=== PATIENT | male | born 1955 | race Caucasian/White ===

== ENCOUNTER 2025-05-21 05:47 | Observation (INO) | payer MEDICARE ==
[2025-05-21] MEDS ORDERED: [UNRECOGNIZED DRUG - OTHER] IV ONE (05:48)
[2025-05-21] MEDS ORDERED: TRANEXAMIC IV ONE (05:48)
[2025-05-21] MEDS ORDERED: CEFAZOLIN SODIUM ONE (05:59)
[2025-05-21] MEDS: NEURONTIN PO ONE (06:00)
[2025-05-21] MEDS: Decadron 4 MG PO ONE (06:00)
[2025-05-21] MEDS: TYLENOL EXTRA STRENGTH 500 MG PO ONE (06:00)
[2025-05-21] MEDS: celeBREX 100 MG PO ONE (06:01)
[2025-05-21] MEDS: Lactated Ringers 1,000 ML IV SCH (06:01)
[2025-05-21] MEDS ORDERED: Lactated Ringers 1,000 ML IV ONE (07:38)
[2025-05-21] MEDS ORDERED: VANCOCIN INJECTION IV ONE (07:38)
[2025-05-21] MEDS ORDERED: Versed 2 MG/2 ML Injection ONE (07:45)
[2025-05-21] MEDS ORDERED: SUBLIMAZE 100 MCG/2 ML ONE (07:46)
[2025-05-21] MEDS ORDERED: Astramorph-Pf 5 MG/10 ML ONE (07:46)
[2025-05-21] MEDS ORDERED: Xylocaine-Mpf 2% 5 Ml Vial ONE (07:47)
[2025-05-21] MEDS ORDERED: Zofran 4 MG/2 ML VIAL ONE (07:47)
[2025-05-21] MEDS ORDERED: ROCURONIUM BROMIDE IV ONE (07:47)
[2025-05-21] MEDS ORDERED: propofoL IV ONE (07:47)
[2025-05-21] MEDS ORDERED: EXPAREL 133 MG/10 ML VIAL IJ ONE (07:52)
[2025-05-21] MEDS ORDERED: Marcaine Mpf 0.5% Vial 30 Ml ONE (07:52)
[2025-05-21] MEDS: TRANEXAMIC 1,000 MG/100ML-NACL 1,000 MG/100 ML PIGGYBACK IV ONE (08:02)
[2025-05-21] MEDS ORDERED: Ephedrine Sulfate 50 MG/ML ONE (08:28)
[2025-05-21] MEDS ORDERED: BRIDION 200MG/2ML IV ONE (08:47)
[2025-05-21] MEDS ORDERED: Narcan 0.4 MG/ML IV PRN (09:22)
[2025-05-21] MEDS ORDERED: Nubain 10 MG/ML IV PRN (09:22)
[2025-05-21] MEDS ORDERED: Zofran 4 MG/2 ML VIAL IV PRN ×2 (09:22→13:10)
[2025-05-21] MEDS ORDERED: PERCOCET TABLET 5/325MG PO PRN (09:22)
[2025-05-21] MEDS ORDERED: Sodium Chloride 0.9% 10 ML FLUSH Syringe IJ PRN (09:22)
[2025-05-21] MEDS ORDERED: CLARITIN 10 MG PO PRN (09:22)
[2025-05-21] MEDS ORDERED: MORPHINE SULFATE 2 MG INJ IV PRN (09:22)
[2025-05-21] MEDS ORDERED: BENADRYL 50 MG/ML IV PRN (09:22)
[2025-05-21] MEDS ORDERED: DEMEROL 50 MG IV PRN (09:22)
[2025-05-21] MEDS ORDERED: HOLD NARCOTIC ANALGESICS AND SEDATIVES X24 HR MC SCH (10:00)
[2025-05-21] MEDS ORDERED: ALBUTEROL/Proair Hfa MDI IH ONE (10:19)
--- NOTE | 2025-05-21 11:39 | XRAY ---
Indication: Postop exam. Comparison: December 19, 2024 AP/cross-table lateral right knee now demonstrates total knee replacement, postoperative soft tissue swelling/emphysema, and anterior cutaneous poppy. Stable scattered vascular calcifications. No other abnormalities.
[2025-05-21] MEDS ORDERED: NORCO 10-325 MG PO PRN (13:09)
[2025-05-21] MEDS ORDERED: Docusate Sodium 100 MG PO PRN (13:10)
[2025-05-21] MEDS ORDERED: MORPHINE SULFATE 4 MG INJ IV PRN (13:11)
--- NOTE | 2025-05-21 13:48 | PCM.HP ---
History of Present Illness - Chief Complaint Chief Complaint: S/P RIGHT TOTAL KNEE,BIGEMINY,ST DEPRESSION Date: 05/21/25 History of Present Illness: is a 69 year old male with a pmhx of CAD, HTN, HLD, and smoker ho presented for admission following a right total knee arthroplasty after being noted postoperatively to have new electrocardiographic changes. Nursing and surgical staff observed runs of ventricular bigeminy and ST-segment depression, prompting evaluation. The patient himself remains entirely asymptomatic, denying chest pain, shortness of breath, palpitations, dizziness, or presyncope. On arrival his vital signs were stable, and initial troponin was negative. A 12- lead EKG demonstrated sinus rhythm with frequent premature ventricular complexes in a bigeminy pattern, nonspecific ST-segment depression in the inferior and lateral leads (II, III, aVF, V5V6), and borderline QTc prolongation measured at 457 ms. Telemetry confirmed sinus rhythm with intermittent ventricular bigeminy without sustained arrhythmia. Chest X-ray showed no acute cardiopulmonary process. The patient is admitted for cardiac monitoring and evaluation in the context of his significant CAD history and abnormal postoperative EKG findings. Cardiology has been consulted for further recommendations regarding ischemic evaluation and echocardiography. Orthopedic postoperative management will continue with multimodal pain control, physical therapy initiation, and m onitoring for DVT or wound complications while maintaining prophylaxis per protocol. Plan of care time spent 35 minutes. - Review of Systems All Other Systems: Reviewed and Negative Medications & Allergies Home Medications: Home Medication List Clopidogrel Bisulfate [PLAVIX 75 MG Tablet] 75 mg PO DAILY 12/21/14 [History Confirmed 05/18/25] Ramipril 5 mg [Altace 5 MG] 5 mg PO BID 12/21/14 [History Confirmed 05/18/25] hydroCHLOROthiazide [Hydrochlorothiazide] 12.5 mg PO DAILY 12/21/14 [History Confirmed 05/18/25] Aspirin 81 mg PO DAILY 12/24/14 [History Confirmed 05/18/25] Rosuvastatin Calcium 5 mg PO DAILY 10/19/24 [History Confirmed 05/18/25] Allergies/Adverse Reactions: Allergies Allergy/AdvReac Type Severity Reaction Status Date / Time atorvastatin [From Lipitor] Allergy cramping Verified 05/18/25 13:12 bee pollen Allergy Swelling Verified 05/18/25 13:12 - Past Medical History Past Medical History: Yes Neurological History: No Pertinent History ENT History: No Pertinent History Cardiac History: Coronary Artery Disease, High Cholesterol, Hypertension Respiratory History: No Pertinent History Endocrine Medical History: No Pertinent History Musculoskelatal History: No Pertinent History GI Medical History: Gallbladder Disease History: No Pertinent History Pyscho-Social History: No Pertinent History Male Reproductive Disorders: No Pertinent History - Past Surgical History Past Surgical History: Yes Neuro Surgical History: No Pertinent History Cardiac History: Cardiac Catheterization, Cardiac Stent Respiratory Surgery: No Pertinent History GI Surgical History: Cholecystectomy, Hernia Repair Genitourinary Surgical Hx: No Pertinent History Musculskeletal Surgical Hx: Orthopedic Surgery Male Surgical History: No Pertinent History Other Surgical History: left foot surgery/tendon or ligament, right knee twice,left groin "unclogged", back surgery, heart stents, Significant Family History: diabetes - Social History Smoking Status: Current every day smoker How long have you smoked: 60 Exposure to second hand smoke: Yes Alcohol: None Drug Use: none - Social Determinants of Health Will the patient participate in the screening: Yes Do you worry about a steady place to live?: No Do you have any problems with any of the following?: No known problems In the past 12 months,have you had to go without utilities?: No Have you or anyone in your house had to go without enough: No Transportation Issues: No Has anyone in your support network made you feel unsafe?: No Does the patient want assistance with any of the above?: No - Physical Exam Vital Signs: Vital Signs - 24 hr Temp Pulse Resp BP Pulse Ox 05/21/25 12:14 96 05/21/25 11:29 97.7 F 58 L 16 123/56 90 L 05/21/25 11:25 97.7 F 58 L 16 113/56 90 L 05/21/25 06:21 97.3 F 84 18 123/78 97 05/21/25 06:12 97.3 F 84 18 123/78 97 General Appearance: no apparent distress Neurologic Exam: alert, oriented x 3, cooperative Eye Exam: PERRL/EOMI Ears, Nose, Throat Exam: normal ENT inspection Neck Exam: normal inspection Respiratory Exam: normal breath sounds, lungs clear Cardiovascular Exam: regular rate/rhythm, normal heart sounds Gastrointestinal/Abdomen Exam: soft, normal bowel sounds Rectal Exam: deferred Back Exam: normal inspection Extremity Exam: normal inspection Wound Assessment: Skin/Wound Assessment Wound/Incision Assessment Start: 05/21/25 11:43 Text: Status: Active Freq: Q6H Protocol: Document 05/21/25 11:43 AR (Rec: 05/21/25 12:16 AR [id number]) Wound/Incision Assessment Right Knee Wound Assessment Admission Wound Type Incision Wound Stage Non Pressure Wound Dressing Status Dry & Intact Drainage Amount None Comment sutures and poppy to right knee and covered with aquacel drainage, CDI Wound Photo Photo Taken No Results - Labs Lab/Micro Results: Lab Results-Last 24 Hours 05/21/25 Range/Units 11:00 Troponin I < 0.012 (0.000-0.033) ng/mL - Radiology Impressions Radiology Exams & Impressions: Radiology Procedures Category Date Time Status ECHO W/2D AND DOPPLER [US] Stat Exams 05/21/25 13:39 Ordered KNEE (1 OR 2 VIEW) Stat Exams 05/21/25 10:39 Completed - Other Procedures and Tests Respiratory Therapy 05/21/25 11:11 Oxygen Oxymizer LPM 3 lpm 05/21/25 12:14 Incentive Spirometry Q1HWA Assessment/Plan (1) Abnormal EKG Current Visit: Yes Status: Acute Assessment & Plan: -ST depression, frequent PVCs with ventricular bigeminy, borderline prolonged QTc -Admit for cardiac monitoring and workup. -Continue continuous telemetry. -Initial troponin WNL -Trend serial troponins x3 and repeat EKGs. -Maintain electrolytes: K >4.0, Mg >2.0 (replete as necessary). -Avoid QT-prolonging medications. -Cardiology consultation pending for further management (consider echo, ischemic evaluation). -Monitor for recurrence or progression of arrhythmia. Code(s): R94.31 - ABNORMAL ELECTROCARDIOGRAM [ECG] [EKG] (2) Status post right knee replacement Current Visit: Yes Status: Acute Assessment & Plan: -Continue orthopedic postoperative protocol. -pain management. -Physical therapy initiation per ortho. -Monitor incision site for infection, DVT. -Continue DVT prophylaxis (to be balanced with cardiac recommendations). Code(s): Z96.651 - PRESENCE OF RIGHT ARTIFICIAL KNEE JOINT (3) CAD (coronary artery disease) Current Visit: Yes Status: Acute Assessment & Plan: -Continue aspirin, statin, beta-janeth -Monitor for ischemic changes. -Modify risk factors (cardiac rehab referral once stable) Code(s): I25.10 - ATHSCL HEART DISEASE OF [place] CORONARY ARTERY W/O ANG PCTRS (4) HTN (hypertension) Current Visit: Yes Status: Acute Assessment & Plan: -Resume home antihypertensives as tolerated. -Monitor BP closely perioperatively. Code(s): I10 - ESSENTIAL (PRIMARY) HYPERTENSION (5) HLD (hyperlipidemia) Current Visit: Yes Status: Acute Assessment & Plan: -Continue statin therapy Code(s): E78.5 - HYPERLIPIDEMIA, UNSPECIFIED (6) Smoker Current Visit: Yes Status: Acute Assessment & Plan: -Counseling on cessation and offered nicotine replacement. VTE: ASA per ortho Dispo: 1-2 days pending cardiac evaluation Code status: Full Code. Code(s): F17.200 - NICOTINE DEPENDENCE, UNSPECIFIED, UNCOMPLICATED
[2025-05-21] MEDS ORDERED: DUONEB 0.5-3 MG/3 ml Neb IH PRN (13:51)
[2025-05-21 14:02] LABS: BASOPHIL % 0.2 % (0.2-1.2); Basophil (Absolute #) 0.02 x10^3/uL (0.01-0.08); Eosinophil (Absolute #) 0.01 x10^3/uL (0.04-0.54); Hematocrit 47.8 % (40.1-51.0); Hemoglobin 15.2 g/dL (13.7-17.5); IMMATURE GRAN # 0.08 x10^3u/L (0.001-0.031); IMMATURE GRAN % 0.6 % (0.001-0.429); Lymphocyte (Absolute #) 1.10 x10^3/uL (1.32-3.57); Mean Corpuscular Hemoglobin 30.2 pg (25.7-32.2); Mean Corpuscular Hgb Concent. 31.8 g/dL (32.3-36.5); Monocyte (Absolute #) 0.16 x10^3/uL (0.30-0.82); NUCLEATED RBC # 0.00 x10^3u/L (0.00-0.012); NUCLEATED RBC % 0.0 % (0.00-0.2); Platelet Count 161 x10^3/uL (163-337); Red Blood Count 5.03 x10^6/uL (4.63-6.08); White Blood Count 12.8 x10^3/uL (4.23-9.07)
[2025-05-21 14:17] LABS: Calcium 8.5 mg/dL (8.4-10.2); Carbon Dioxide 27.0 mmol/L (22-30); Creatinine 1 0.72 mg/dL (0.66-1.25); EST GLOMERULAR FILTRATION RATE 97.7 ML/MIN; Glucose 185.0 mg/dL (74-106); Potassium 3.9 mmol/L (3.5-5.1); SGOT/AST 20.0 U/L (17-59); SGPT/ALT 16.0 U/L (0-50); Total Protein 6.1 g/dL (6.3-8.2)
--- NOTE | 2025-05-21 15:23 | XRAY ---
Indication: Cardiac workup. Comparison: April 27, 2025 Portable chest remains clear again with incidental right lung calcified granuloma. Heart not enlarged. Bony thorax intact again with osteopenia and mild degenerative changes. No new/acute findings.
[2025-05-21] MEDS: NICODERM CQ 14 MG TOP SCH (16:19)
[2025-05-21] MEDS: Zestril 20 MG PO SCH (21:26)
[2025-05-21] MEDS ORDERED: RAMIPRIL 5 MG PO SCH (22:00)
--- NOTE | 2025-05-21 22:52 | PCM.CONS ---
History of Present Illness - Date of Consult Date of Encounter: 05/21/25 Consulting [employer] Specialist: ALFONSO BOLDEN MD Requesting Provider: Attending Provider: KAMERON YOUNG MD Primary Care Provider: PCP: DWAIN RODRIGUEZ - Consult Narrative Reason for Consult: abnormal ecg HPI: Patient is a 69M with a history of CAD and two stents 25 years ago, HLD, HTN, chronic tobacco use presenting to the hospital for elective knee arthroplasty. Postoperatively he developed ecg changes including diffuse st depressions and multiple pvcs. He felt well and these changes resolved on their own. No chest pain or shortness of breath. No dizziness or lightheadedness. No palpitations. Troponins were checked and negative x 3. cc:: The requesting physician will be sent a copy of the consult. Review of Systems - Review of Systems All systems: as per HPI - Past Medical History Past Medical History: Yes Neurological History: No Pertinent History ENT History: No Pertinent History Cardiac History: Coronary Artery Disease, High Cholesterol, Hypertension Respiratory History: No Pertinent History Endocrine Medical History: No Pertinent History Musculoskelatal History: No Pertinent History GI Medical History: Gallbladder Disease History: No Pertinent History Pyscho-Social History: No Pertinent History Male Reproductive Disorders: No Pertinent History - Past Surgical History Past Surgical History: Yes Neuro Surgical History: No Pertinent History Cardiac History: Cardiac Catheterization, Cardiac Stent Respiratory Surgery: No Pertinent History GI Surgical History: Cholecystectomy, Hernia Repair Genitourinary Surgical Hx: No Pertinent History Musculskeletal Surgical Hx: Orthopedic Surgery Male Surgical History: No Pertinent History Other Surgical History: left foot surgery/tendon or ligament, right knee twice,left groin "unclogged", back surgery, heart stents, Significant Family History: diabetes - Social History Smoking Status: Current every day smoker How long have you smoked: 60 Exposure to second hand smoke: Yes Alcohol: None Drug Use: none - Social Determinants of Health Will the patient participate in the screening: Yes Do you worry about a steady place to live?: No Do you have any problems with any of the following?: No known problems In the past 12 months,have you had to go without utilities?: No Have you or anyone in your house had to go without enough: No Transportation Issues: No Has anyone in your support network made you feel unsafe?: No Does the patient want assistance with any of the above?: No Medications & Allergies Home Medications: Home Medication List Clopidogrel Bisulfate [PLAVIX 75 MG Tablet] 75 mg PO DAILY 12/21/14 [History Confirmed 05/18/25] Ramipril 5 mg [Altace 5 MG] 5 mg PO BID 12/21/14 [History Confirmed 05/18/25] hydroCHLOROthiazide [Hydrochlorothiazide] 12.5 mg PO DAILY 12/21/14 [History Confirmed 05/18/25] Aspirin 81 mg PO DAILY 12/24/14 [History Confirmed 05/18/25] Rosuvastatin Calcium 5 mg PO DAILY 10/19/24 [History Confirmed 05/18/25] Allergies/Adverse Reactions: Allergies Allergy/AdvReac Type Severity Reaction Status Date / Time atorvastatin [From Lipitor] Allergy cramping Verified 05/18/25 13:12 bee pollen Allergy Swelling Verified 05/18/25 13:12 Exam - Vitals Vital Signs: Vital Signs - 24 hr Temp Pulse Resp BP Pulse Ox 05/21/25 21:23 93 L 05/21/25 20:00 98.0 F 74 15 113/55 97 05/21/25 16:00 98.2 F 93 H 18 125/60 94 L 05/21/25 12:14 96 05/21/25 11:29 97.7 F 58 L 16 123/56 90 L 05/21/25 11:25 97.7 F 58 L 16 113/56 90 L 05/21/25 06:21 97.3 F 84 18 123/78 97 05/21/25 06:12 97.3 F 84 18 123/78 97 General:: alert and oriented x 4, no acute distress HEENT: PERRLA, EOMI Cardiovascular Exam: regular rate/rhythm, normal heart sounds Respiratory Exam: normal breath sounds SpO2: 93 Results Vital Signs: Vital Signs - 24 hr Temp Pulse Resp BP Pulse Ox 05/21/25 21:23 93 L 05/21/25 20:00 98.0 F 74 15 113/55 97 05/21/25 16:00 98.2 F 93 H 18 125/60 94 L 05/21/25 12:14 96 05/21/25 11:29 97.7 F 58 L 16 123/56 90 L 05/21/25 11:25 97.7 F 58 L 16 113/56 90 L 05/21/25 06:21 97.3 F 84 18 123/78 97 05/21/25 06:12 97.3 F 84 18 123/78 97 Pain Assessment - Last Documented Pain Intensity [Right] 2 Pain Scale Used 0-10 Pain Scale Intake and Output: Intake & Output 05/19/25 05/20/25 05/21/25 05/22/25 11:59 11:59 11:59 11:59 Intake Total 600 Balance 600 Weight 93.5 kg LAB: I have reviewed the Labs in [facility]. Radiology Exams: Radiology Procedures Category Date Time Status CHEST 1 VIEW (PORTABLE) Stat Exams 05/21/25 13:51 Completed ECHO W/2D AND DOPPLER [US] Stat Exams 05/21/25 13:39 Taken KNEE (1 OR 2 VIEW) Stat Exams 05/21/25 10:39 Completed - ECHO Echo: image reviewed by me (normal LVEF, no wall motion abnormalities, RV enlargement) Multi-Disciplinary Progress Notes: Multi-Disciplinary Progress Notes 05/21/25 16:22 Physical Therapy Note by Bill(L#[id number])Windy CARDIOLOGY CONSULT STILL PENDING. REVIEWED PROPER, SAFE STEP NEGOTIATION AND PROVIDED PT. W/ HANDOUT. PERFORMED ANKLE PUMPS AND QUAD SETS IN BED. PT. STILL HAS SOME NUMBNESS R LE. WILL HOLD ON MOBILITY ASSESSMENT UNTIL AFTER CARDIAC CONSULT. PT. ON 1-2 L O2 D/T LOW SATS AND IV PRESENT. WILL COMPLETE P.T. EVAL IN IN A.M. Initialized on 05/21/25 16:22 - END OF NOTE 05/21/25 14:10 Physical Therapy Note by Eunice#[id number])Windy WILL HOLD P.T. EVAL UNTIL AFTER CARDIOLOGY CONSULT. Initialized on 05/21/25 14:10 - END OF NOTE Assessment & Plan (1) Abnormal EKG Current Visit: Yes Status: Acute Assessment & Plan: No evidence of acute coronary syndrome. Patient had negative troponin x 2 - Check one more trop - monitor on telemetry - If negative recommend outpatient stress test and/or angiogram. 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 - smoking cessation encouraged given his daily use - continue plavix, aspirin Code(s): R94.31 - ABNORMAL ELECTROCARDIOGRAM [ECG] [EKG] (2) CAD (coronary artery disease) Current Visit: Yes Status: Acute Assessment & Plan: 2 stents in the past - continue statin - continue aspirin, plavix - outpatient stres Code(s): I25.10 - ATHSCL HEART DISEASE OF [place] CORONARY ARTERY W/O ANG PCTRS (3) HLD (hyperlipidemia) Current Visit: Yes Status: Acute Assessment & Plan: continue statin Code(s): E78.5 - HYPERLIPIDEMIA, UNSPECIFIED (4) HTN (hypertension) Current Visit: Yes Status: Acute Code(s): I10 - ESSENTIAL (PRIMARY) HYPERTENSION - Encounter Encounter: "The entirety of this encounter was performed via Telemedicine using audio and visual "
[2025-05-22 05:33] LABS: BASOPHIL % 0.3 % (0.2-1.2); Basophil (Absolute #) 0.04 x10^3/uL (0.01-0.08); Eosinophil (Absolute #) 0.07 x10^3/uL (0.04-0.54); Hematocrit 43.9 % (40.1-51.0); Hemoglobin 13.8 g/dL (13.7-17.5); IMMATURE GRAN # 0.11 x10^3u/L (0.001-0.031); IMMATURE GRAN % 0.8 % (0.001-0.429); Lymphocyte (Absolute #) 2.87 x10^3/uL (1.32-3.57); Mean Corpuscular Hemoglobin 30.0 pg (25.7-32.2); Mean Corpuscular Hgb Concent. 31.4 g/dL (32.3-36.5); Monocyte (Absolute #) 1.03 x10^3/uL (0.30-0.82); NUCLEATED RBC # 0.00 x10^3u/L (0.00-0.012); NUCLEATED RBC % 0.0 % (0.00-0.2); Platelet Count 158 x10^3/uL (163-337); Red Blood Count 4.60 x10^6/uL (4.63-6.08); White Blood Count 14.6 x10^3/uL (4.23-9.07)
[2025-05-22 05:55] LABS: Calcium 8.9 mg/dL (8.4-10.2); Carbon Dioxide 27.0 mmol/L (22-30); Creatinine 1 0.69 mg/dL (0.66-1.25); EST GLOMERULAR FILTRATION RATE 98.9 ML/MIN; Glucose 142.0 mg/dL (74-106); Potassium 3.6 mmol/L (3.5-5.1); SGOT/AST 21.0 U/L (17-59); SGPT/ALT 15.0 U/L (0-50); Total Protein 6.3 g/dL (6.3-8.2)
[2025-05-22 07:07] LABS: Amphetamine,Urine NEGATIVE (NEGATIVE); Barbiturate,Urine NEGATIVE (NEGATIVE); Benzodiazepine,Urine POSITIVE (NEGATIVE); Cocaine,Urine NEGATIVE (NEGATIVE); Methadone,Urine NEGATIVE (NEGATIVE); Opiate,Urine NEGATIVE (NEGATIVE); PCP,Urine NEGATIVE (NEGATIVE); THC,Urine NEGATIVE (NEGATIVE)
[2025-05-22 07:26] LABS: Glucose, Urine 100 mg/dL (Negative); Protein,Urine Dip 30 (Negative)
[2025-05-22] MEDS ORDERED: MORPHINE SULFATE 4 MG INJ IV PRN (09:30)
[2025-05-22] MEDS ORDERED: NON-FORMULARY ITEM (Hydrochlorothiazide [Hydrochlorothiazide] 12.5 MG Capsule) PO SCH (10:00)
[2025-05-22] MEDS ORDERED: NON-FORMULARY ITEM (Rosuvastatin Calcium [Rosuvastatin Calcium] 5 MG Tablet) PO SCH (10:00)
--- NOTE | 2025-05-22 10:07 | PCM.DS ---
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 He remained asymptomatic throughout admission, with negative troponin, stable vitals, and cardiology consultation recommending continued monitoring without medication changes. Telemetry showed sinus rhythm with intermittent ventricular bigeminy, and no sustained arrhythmias were noted. Postoperatively, he has had good pain control without the need for analgesics. He experienced difficulty urinating overnight requiring straight catheterization with 650 mL output, followed by spontaneous voiding with hematuria likely related to catheter trauma. The patient declined discharge with a Kauffman catheter and was advised to notify staff of voiding prior to discharge. Laboratory studies revealed hypokalemia and hypomagnesemia, which were corrected, with goals to maintain potassium above 4.0 and magnesium above 2.0. He was also started on an albuterol inhaler for intermittent wheezing given his ctj-[id number]-plp-day smoking history and will be discharged with this medication. Orthopedics was consulted for discharge planning, and physical therapy is ongoing. At the time of discharge, he denies any acute concerns, is hemodynamically stable, and is medically cleared to return home with outpatient follow-up as directed by cardiology and orthopedics. - Vitals & Intake/Output Vital Signs: Vital Signs Temperature 98.1 F 05/22/25 07:47 Pulse Rate 94 H 05/22/25 07:47 Respiratory Rate 16 05/22/25 07:47 Blood Pressure 119/65 05/22/25 07:47 O2 Sat by Pulse Oximetry 94 L 05/22/25 07:47 Intake & Output: Intake & Output 05/19/25 05/20/25 05/21/25 09/09/25 11:59 11:59 11:59 11:59 Intake Total 2539 Output Total 650 Balance 1889 Weight 93.5 kg 93.5 kg - Lab Result Diagrams: 05/22/25 05:30 05/22/25 05:30 Lab Results-Last 24 Hrs: Lab Results-Last 24 Hours 05/21/25 05/21/25 05/21/25 Range/Units 11:00 13:55 13:55 WBC 12.8 H (4.23-9.07) x10^3/uL RBC 5.03 (4.63-6.08) x10^6/uL Hgb 15.2 (13.7-17.5) g/dL Hct 47.8 (40.1-51.0) % MCV 95.0 H (79.0-92.2) fL MCH 30.2 (25.7-32.2) pg MCHC 31.8 L (32.3-36.5) g/dL RDW 14.2 (11.6-14.4) % Plt Count 161 L (163-337) x10^3/uL MPV 10.7 (9.4-12.4) fL Gran % 89.3 H (34.0-67.9) % Immature Gran % (Auto) 0.6 H (0.001-0.429) % Nucleat RBC Rel Count 0.0 (0.00-0.2) % Eos # (Auto) 0.01 L (0.04-0.54) x10^3/uL Immature Gran # (Auto) 0.08 H (0.001-0.031) x10^3u/L Absolute Lymphs (auto) 1.10 L (1.32-3.57) x10^3/uL Absolute Monos (auto) 0.16 L (0.30-0.82) x10^3/uL Absolute Nucleated RBC 0.00 (0.00-0.012) x10^3u/L Lymphocytes % 8.6 L (21.8-53.1) % Monocytes % 1.2 L (5.3-12.2) % Eosinophils % 0.1 L (0.8-7.0) % Basophils % 0.2 (0.2-1.2) % Absolute Granulocytes 11.47 H (1.78-5.38) x10^3/uL Basophils # 0.02 (0.01-0.08) x10^3/uL D-Dimer (0.0-0.50) mg/L Sodium (135-145) mmol/L Potassium (3.5-5.1) mmol/L Chloride (98-107) mmol/L Carbon Dioxide (22-30) mmol/L Anion Gap (5-15) MEQ/L BUN (9-20) mg/dL Creatinine (0.66-1.25) mg/dL Estimated GFR ML/MIN Glucose (74-106) mg/dL Calcium (8.4-10.2) mg/dL Magnesium (1.6-2.3) mg/dL Total Bilirubin (0.2-1.3) mg/dL AST (17-59) U/L ALT (0-50) U/L Alkaline Phosphatase (38-126) U/L Troponin I < 0.012 < 0.012 (0.000-0.033) ng/mL Serum Total Protein (6.3-8.2) g/dL Albumin (3.5-5.0) g/dL Urine Color (Yellow) Urine Appearance (Clear) Urine pH (4.6-8.0) Ur Specific [place] (1.005-1.030) Urine Protein (Negative) Urine Glucose (UA) (Negative) mg/dL Urine Ketones (Negative) Urine Blood (Negative) Urine Nitrite (Negative) Urine Bilirubin (Negative) Urine Urobilinogen (0.2) mg/dL Ur Leukocyte Esterase (Negative) U Hyaline Cast (Auto) (0-2) /LPF Urine Microscopic RBC (0-5) /HPF Urine Microscopic WBC (0-5) /HPF Ur Epithelial Cells (None Seen) /HPF Urine Bacteria (None Seen) /HPF Urine Culture Reflexed (NO) Urine Opiates Level (NEGATIVE) Ur Methadone (NEGATIVE) Urine Barbiturates (NEGATIVE) Ur Phencyclidine (PCP) (NEGATIVE) Urine Amphetamine (NEGATIVE) U Benzodiazepine Level (NEGATIVE) Urine Cocaine (NEGATIVE) Urine Marijuana (THC) (NEGATIVE) 05/21/25 05/21/25 05/21/25 Range/Units 13:55 13:55 17:10 WBC (4.23-9.07) x10^3/uL RBC (4.63-6.08) x10^6/uL Hgb (13.7-17.5) g/dL Hct (40.1-51.0) % MCV (79.0-92.2) fL MCH (25.7-32.2) pg MCHC (32.3-36.5) g/dL RDW (11.6-14.4) % Plt Count (163-337) x10^3/uL MPV (9.4-12.4) fL Gran % (34.0-67.9) % Immature Gran % (Auto) (0.001-0.429) % Nucleat RBC Rel Count (0.00-0.2) % Eos # (Auto) (0.04-0.54) x10^3/uL Immature Gran # (Auto) (0.001-0.031) x10^3u/L Absolute Lymphs (auto) (1.32-3.57) x10^3/uL Absolute Monos (auto) (0.30-0.82) x10^3/uL Absolute Nucleated RBC (0.00-0.012) x10^3u/L Lymphocytes % (21.8-53.1) % Monocytes % (5.3-12.2) % Eosinophils % (0.8-7.0) % Basophils % (0.2-1.2) % Absolute Granulocytes (1.78-5.38) x10^3/uL Basophils # (0.01-0.08) x10^3/uL D-Dimer 1.20 H* (0.0-0.50) mg/L Sodium 139 (135-145) mmol/L Potassium 3.9 (3.5-5.1) mmol/L Chloride 103 (98-107) mmol/L Carbon Dioxide 27 (22-30) mmol/L Anion Gap 12.7 (5-15) MEQ/L BUN 17 (9-20) mg/dL Creatinine 0.72 (0.66-1.25) mg/dL Estimated GFR 97.7 ML/MIN Glucose 185 H (74-106) mg/dL Calcium 8.5 (8.4-10.2) mg/dL Magnesium (1.6-2.3) mg/dL Total Bilirubin 0.20 (0.2-1.3) mg/dL AST 20 (17-59) U/L ALT 16 (0-50) U/L Alkaline Phosphatase 70 (38-126) U/L Troponin I < 0.012 (0.000-0.033) ng/mL Serum Total Protein 6.1 L (6.3-8.2) g/dL Albumin 3.5 (3.5-5.0) g/dL Urine Color (Yellow) Urine Appearance (Clear) Urine pH (4.6-8.0) Ur Specific [place] (1.005-1.030) Urine Protein (Negative) Urine Glucose (UA) (Negative) mg/dL Urine Ketones (Negative) Urine Blood (Negative) Urine Nitrite (Negative) Urine Bilirubin (Negative) Urine Urobilinogen (0.2) mg/dL Ur Leukocyte Esterase (Negative) U Hyaline Cast (Auto) (0-2) /LPF Urine Microscopic RBC (0-5) /HPF Urine Microscopic WBC (0-5) /HPF Ur Epithelial Cells (None Seen) /HPF Urine Bacteria (None Seen) /HPF Urine Culture Reflexed (NO) Urine Opiates Level (NEGATIVE) Ur Methadone (NEGATIVE) Urine Barbiturates (NEGATIVE) Ur Phencyclidine (PCP) (NEGATIVE) Urine Amphetamine (NEGATIVE) U Benzodiazepine Level (NEGATIVE) Urine Cocaine (NEGATIVE) Urine Marijuana (THC) (NEGATIVE) 05/22/25 05/22/25 05/22/25 Range/Units 05:30 05:30 05:33 WBC 14.6 H (4.23-9.07) x10^3/uL RBC 4.60 L (4.63-6.08) x10^6/uL Hgb 13.8 (13.7-17.5) g/dL Hct 43.9 (40.1-51.0) % MCV 95.4 H (79.0-92.2) fL MCH 30.0 (25.7-32.2) pg MCHC 31.4 L (32.3-36.5) g/dL RDW 14.2 (11.6-14.4) % Plt Count 158 L (163-337) x10^3/uL MPV 10.9 (9.4-12.4) fL Gran % 71.8 H (34.0-67.9) % Immature Gran % (Auto) 0.8 H (0.001-0.429) % Nucleat RBC Rel Count 0.0 (0.00-0.2) % Eos # (Auto) 0.07 (0.04-0.54) x10^3/uL Immature Gran # (Auto) 0.11 H (0.001-0.031) x10^3u/L Absolute Lymphs (auto) 2.87 (1.32-3.57) x10^3/uL Absolute Monos (auto) 1.03 H (0.30-0.82) x10^3/uL Absolute Nucleated RBC 0.00 (0.00-0.012) x10^3u/L Lymphocytes % 19.6 L (21.8-53.1) % Monocytes % 7.0 (5.3-12.2) % Eosinophils % 0.5 L (0.8-7.0) % Basophils % 0.3 (0.2-1.2) % Absolute Granulocytes 10.52 H (1.78-5.38) x10^3/uL Basophils # 0.04 (0.01-0.08) x10^3/uL D-Dimer (0.0-0.50) mg/L Sodium 136 (135-145) mmol/L Potassium 3.6 (3.5-5.1) mmol/L Chloride 101 (98-107) mmol/L Carbon Dioxide 27 (22-30) mmol/L Anion Gap 11.2 (5-15) MEQ/L BUN 20 (9-20) mg/dL Creatinine 0.69 (0.66-1.25) mg/dL Estimated GFR 98.9 ML/MIN Glucose 142 H (74-106) mg/dL Calcium 8.9 (8.4-10.2) mg/dL Magnesium 1.8 (1.6-2.3) mg/dL Total Bilirubin 0.30 (0.2-1.3) mg/dL AST 21 (17-59) U/L ALT 15 (0-50) U/L Alkaline Phosphatase 63 (38-126) U/L Troponin I (0.000-0.033) ng/mL Serum Total Protein 6.3 (6.3-8.2) g/dL Albumin 3.6 (3.5-5.0) g/dL Urine Color (Yellow) Urine Appearance (Clear) Urine pH (4.6-8.0) Ur Specific [place] (1.005-1.030) Urine Protein (Negative) Urine Glucose (UA) (Negative) mg/dL Urine Ketones (Negative) Urine Blood (Negative) Urine Nitrite (Negative) Urine Bilirubin (Negative) Urine Urobilinogen (0.2) mg/dL Ur Leukocyte Esterase (Negative) U Hyaline Cast (Auto) (0-2) /LPF Urine Microscopic RBC (0-5) /HPF Urine Microscopic WBC (0-5) /HPF Ur Epithelial Cells (None Seen) /HPF Urine Bacteria (None Seen) /HPF Urine Culture Reflexed (NO) Urine Opiates Level (NEGATIVE) Ur Methadone (NEGATIVE) Urine Barbiturates (NEGATIVE) Ur Phencyclidine (PCP) (NEGATIVE) Urine Amphetamine (NEGATIVE) U Benzodiazepine Level (NEGATIVE) Urine Cocaine (NEGATIVE) Urine Marijuana (THC) (NEGATIVE) 05/22/25 05/22/25 Range/Units 06:06 06:48 WBC (4.23-9.07) x10^3/uL RBC (4.63-6.08) x10^6/uL Hgb (13.7-17.5) g/dL Hct (40.1-51.0) % MCV (79.0-92.2) fL MCH (25.7-32.2) pg MCHC (32.3-36.5) g/dL RDW (11.6-14.4) % Plt Count (163-337) x10^3/uL MPV (9.4-12.4) fL Gran % (34.0-67.9) % Immature Gran % (Auto) (0.001-0.429) % Nucleat RBC Rel Count (0.00-0.2) % Eos # (Auto) (0.04-0.54) x10^3/uL Immature Gran # (Auto) (0.001-0.031) x10^3u/L Absolute Lymphs (auto) (1.32-3.57) x10^3/uL Absolute Monos (auto) (0.30-0.82) x10^3/uL Absolute Nucleated RBC (0.00-0.012) x10^3u/L Lymphocytes % (21.8-53.1) % Monocytes % (5.3-12.2) % Eosinophils % (0.8-7.0) % Basophils % (0.2-1.2) % Absolute Granulocytes (1.78-5.38) x10^3/uL Basophils # (0.01-0.08) x10^3/uL D-Dimer (0.0-0.50) mg/L Sodium (135-145) mmol/L Potassium (3.5-5.1) mmol/L Chloride (98-107) mmol/L Carbon Dioxide (22-30) mmol/L Anion Gap (5-15) MEQ/L BUN (9-20) mg/dL Creatinine (0.66-1.25) mg/dL Estimated GFR ML/MIN Glucose (74-106) mg/dL Calcium (8.4-10.2) mg/dL Magnesium (1.6-2.3) mg/dL Total Bilirubin (0.2-1.3) mg/dL AST (17-59) U/L ALT (0-50) U/L Alkaline Phosphatase (38-126) U/L Troponin I (0.000-0.033) ng/mL Serum Total Protein (6.3-8.2) g/dL Albumin (3.5-5.0) g/dL Urine Color Dark Yellow (Yellow) Urine Appearance Turbid A (Clear) Urine pH 5.5 (4.6-8.0) Ur Specific [place] >=1.030 A (1.005-1.030) Urine Protein 30 (Negative) Urine Glucose (UA) 100 A (Negative) mg/dL Urine Ketones Trace A (Negative) Urine Blood NHT (Negative) Urine Nitrite Negative (Negative) Urine Bilirubin Negative (Negative) Urine Urobilinogen 1.0 A (0.2) mg/dL Ur Leukocyte Esterase Trace A (Negative) U Hyaline Cast (Auto) NONE SEEN (0-2) /LPF Urine Microscopic RBC 6-10 A (0-5) /HPF Urine Microscopic WBC 3-5 (0-5) /HPF Ur Epithelial Cells None Seen (None Seen) /HPF Urine Bacteria None Seen (None Seen) /HPF Urine Culture Reflexed YES (NO) Urine Opiates Level NEGATIVE (NEGATIVE) Ur Methadone NEGATIVE (NEGATIVE) Urine Barbiturates NEGATIVE (NEGATIVE) Ur Phencyclidine (PCP) NEGATIVE (NEGATIVE) Urine Amphetamine NEGATIVE (NEGATIVE) U Benzodiazepine Level POSITIVE A (NEGATIVE) Urine Cocaine NEGATIVE (NEGATIVE) Urine Marijuana (THC) NEGATIVE (NEGATIVE) - Radiology Exams Ordered Rad Exams-Entire Visit: Radiology Procedures Category Date Time Status CHEST 1 VIEW (PORTABLE) Stat Exams 05/21/25 13:51 Completed ECHO W/2D AND DOPPLER [US] Stat Exams 05/21/25 13:39 Taken KNEE (1 OR 2 VIEW) Stat Exams 05/21/25 10:39 Completed - Procedures and Test Procedures and Tests throughout Hospitalization: Therapy Orders & Screens 05/21/25 10:37 EKG ONCE Comment: Diagnosis: right knee degenerative joint disease 05/21/25 11:11 PT Eval & Treat ( Order) ONCE Reason for Eval:: S/P RIGHT TK REPLACEMENT Diagnosis: S/P RIGHT TOTAL KNEE,BIGEMINY,ST DEPRESSION Oxygen Oxymizer LPM 3 lpm Comment: Diagnosis: right total knee replacement 05/21/25 12:14 Incentive Spirometry Q1HWA Comment: Diagnosis: S/P RIGHT TOTAL KNEE,BIGEMINY,ST DEPRESSION 05/21/25 13:51 EKG REPEAT IN AM Comment: Diagnosis: S/P RIGHT TOTAL KNEE,BIGEMINY,ST DEPRESSION Discharge Exam General Appearance: no apparent distress, alert Neurologic Exam: alert, oriented x 3, cooperative, normal mood/affect, nml cerebellar function, sensation nml, No motor deficits Eye Exam: PERRL, EOMI, eyes nml inspection Ears, Nose, Throat Exam: normal ENT inspection, pharynx normal, moist mucous membranes Neck Exam: normal inspection, non-tender, supple, full range of motion Respiratory Exam: normal breath sounds, lungs clear, No respiratory distress Cardiovascular Exam: regular rate/rhythm, normal heart sounds Gastrointestinal/Abdomen Exam: soft, No tenderness, No mass Male Genitalia Exam: deferred Rectal Exam: deferred Back Exam: normal inspection, normal range of motion, No CVA tenderness, No vertebral tenderness Extremity Exam: normal inspection, normal range of motion, tenderness (right knee) Skin Exam: normal color, warm, dry Wound Assessment: Skin/Wound Assessment Wound/Incision Assessment Start: 05/21/25 11:43 Text: Status: Active Freq: Q6H Protocol: Document 09/09/25 03:00 KD (Rec: 05/22/25 03:40 KD [id number]) Wound/Incision Assessment Right Knee Wound Assessment Shift Assessment Wound Type Incision Wound Stage Non Pressure Wound Dressing Status Dry & Intact Drainage Amount None Comment per report - sutures and poppy to right knee and covered with aquacel drainage Total knee sx, POD #1, IOANA d/t surgical dressing in place, CDI Wound Photo Photo Taken No Final Diagnosis/Problem List - Final Discharge Diagnosis/Problem (1) Abnormal EKG Current Visit: Yes Status: Acute Code(s): R94.31 - ABNORMAL ELECTROCARDIOGRAM [ECG] [EKG] (2) Status post right knee replacement Current Visit: Yes Status: Acute Code(s): Z96.651 - PRESENCE OF RIGHT ARTIFICIAL KNEE JOINT (3) CAD (coronary artery disease) Current Visit: Yes Status: Acute Code(s): I25.10 - ATHSCL HEART DISEASE OF [place]' CORONARY ARTERY W/O ANG PCTRS (4) HTN (hypertension) Current Visit: Yes Status: Acute Code(s): I10 - ESSENTIAL (PRIMARY) HYPERTENSION (5) HLD (hyperlipidemia) Current Visit: Yes Status: Acute Code(s): E78.5 - HYPERLIPIDEMIA, UNSPECIFIED (6) Smoker Current Visit: Yes Status: Acute Code(s): F17.200 - NICOTINE DEPENDENCE, UNSPECIFIED, UNCOMPLICATED (7) Urinary retention Current Visit: Yes Status: Acute Assessment & Plan: 1) Abnormal EKG Current Visit: Yes Status: Acute Assessment & Plan: -ST depression, frequent PVCs with ventricular bigeminy, borderline prolonged QTc -Admitted for cardiac monitoring and workup. -Continue continuous telemetry. -Trend serial troponins x3 negative and repeat EKGs non-concerning -Maintain electrolytes: K >4.0, Mg >2.0 (replete as necessary).- replaced both today -Avoid QT-prolonging medications. -Cardiology consultation pending for further management (consider echo, ischemic evaluation).- note reviewed and agree with plan of care. -Monitor for recurrence or progression of arrhythmia. - CBC, CMP reviewed - echo pending - F/U OP with Dr. Lancaster- cardiology for Echo results - CXR negative Code(s): R94.31 - ABNORMAL ELECTROCARDIOGRAM [ECG] [EKG] (2) Status post right knee replacement Current Visit: Yes Status: Acute Assessment & Plan: -Continue orthopedic postoperative protocol. -pain management. -Physical therapy initiation per ortho. -Monitor incision site for infection, DVT. -Continue DVT prophylaxis (to be balanced with cardiac recommendations). - Resume ASA and plavix if OK with Ortho - Per Ortho continue ASA 81mg BID until OP F/U with DANIEL Horner Code(s): Z96.651 - PRESENCE OF RIGHT ARTIFICIAL KNEE JOINT (3) CAD (coronary artery disease) Current Visit: Yes Status: Acute Assessment & Plan: -Continue aspirin, statin, beta-janeth -Monitor for ischemic changes. -Modify risk factors (cardiac rehab referral once stable) - F/U with Dr. Lancaster Code(s): I25.10 - ATHSCL HEART DISEASE OF [place]' CORONARY ARTERY W/O ANG PCTRS (4) HTN (hypertension) Current Visit: Yes Status: Acute Assessment & Plan: -Resume home antihypertensives as tolerated. -Monitor BP closely perioperatively. Code(s): I10 - ESSENTIAL (PRIMARY) HYPERTENSION (5) HLD (hyperlipidemia) Current Visit: Yes Status: Acute Assessment & Plan: -Continue statin therapy Code(s): E78.5 - HYPERLIPIDEMIA, UNSPECIFIED (6) Smoker Current Visit: Yes Status: Acute Assessment & Plan: -Counseling on cessation and offered nicotine replacement. - Albuterol inhaler TID PRN for wheezing 7. Urinary retention - In and out cath last night with 650ml out. - Monitor I&O Q4 hr - Pt refused kauffmna - Flomax - F/U OP with urology - Post void residual < 300 with flomax D/C plan of care time: > 34 minutes D/C meds: Albuterol, [place], ASA, Flomax Code(s): R33.9 - RETENTION OF URINE, UNSPECIFIED - Discharge Discharge Date: 05/22/25 Disposition: Home, Self-Care Condition: Stable Prescriptions: New Albuterol Common Canister [Ventolin Common Canister] 4 puff IH TIDPRN PRN 30 Days #1 inhaler PRN Reason: Shortness Of Breath/Wheezing Hydrocodone/Acetaminophen [[place] 10-325 mg] 1 tablet PO Q6H PRN PRN #50 tablet MDD 4 PRN Reason: Pain Aspirin EC 81 mg [Ecotrin 81 mg] 81 mg PO BID 30 Days #60 tablet Continue hydroCHLOROthiazide [Hydrochlorothiazide] 12.5 mg PO DAILY Ramipril 5 mg [Altace 5 MG] 5 mg PO BID Clopidogrel Bisulfate [PLAVIX Tablet] 75 mg PO DAILY Aspirin 81 mg PO DAILY Rosuvastatin Calcium 5 mg PO DAILY Additional Instructions: WEIGHT BEARING TOLERATED WITH WALKER CHANGE DRESSING IN 10 DAYS YOU HAVE AN APT WITH PHYSICAL THERAPY TOMORROW 05/23/25@11 AM Hold Plavix while taking Aspirin twice daily per cardiology recommendations. You will take Aspirin daily and Plavix daily as you did before starting on the day you follow up with Ortho outpatient, and from there on out. Follow up with: DWAIN RODRIGUEZ MD [Primary Care Provider, [facility]] - 06/01/25 10:45 am SATNAM HUNTER [NON-STAFF PHY W/O PRIVILEGES, UNKNOWN] - 06/06/25 1:00 pm ANASTASIYA WALKER NP [Non-Physician Practitioner, UNKNOWN] - 06/04/25 10:00 am BRANT ECHEVARRIA DO [NON-STAFF PHY W/O PRIVILEGES, UROLOGY] - Office will call patient Referral Note: OFFICE WILL CALL PATIENT ABOUT AN APPT DATE/TIME AFTER CHART IS REVIEWED BY DOCTOR, DONE BY ACUTE [facility]
[2025-05-22] MEDS: ECOTRIN 81 MG PO SCH (10:09)
[2025-05-22] MEDS: hydroDIURIL 25 MG PO SCH (10:10)
[2025-05-22] MEDS: Zocor 10MG PO SCH (10:10)
[2025-05-22] MEDS: NORCO 10-325 MG PO PRN (10:11)
[2025-05-22] MEDS: MAG-OX 400 PO SCH (10:11)
[2025-05-22] MEDS: Klor Con PO ONE (10:16)
--- NOTE | 2025-05-22 11:01 | OP ---
SURGERY DATE/TIME: 05/21/2025 [id number] PREOPERATIVE DIAGNOSIS: Right knee degenerative joint disease. POSTOPERATIVE DIAGNOSIS: Right knee degenerative joint disease. PROCEDURE: Right total knee arthroplasty. SURGEON: Kar Patel MD ROOF PAINTER: EJ Aiken ANESTHESIA: General. COMPLICATIONS: None. ESTIMATED BLOOD LOSS: 30 mL. INDICATIONS: The patient is a 69-year-old male who presented with a several-year history of progressive right knee pain. He had previously undergone arthroscopy in the past. He had had injections with minimal short-term relief. His x-rays revealed moderately advanced right knee degenerative joint disease. We discussed options, and he wanted to proceed with right total knee arthroplasty. I explained risks associated with the procedure including, but not limited to, infection, pain, bleeding, damage to surrounding structures, stiffness, limp, fracture, blood clot, and need for further procedures. After explaining all risks, benefits, and alternative treatment options, he desired to proceed with surgery. DESCRIPTION OF PROCEDURE AND FINDINGS: The patient was taken to the operating room and placed in supine position. IV antibiotics were administered and general anesthesia was administered as well. A tourniquet was applied to the right upper thigh. The right lower extremity was then prepped and draped in the standard sterile fashion. An Esmarch was used to exsanguinate the limb and the tourniquet was inflated to 250 mmHg. A longitudinal incision was then made over the anterior aspect of the right knee. Dissection was carried down and a medial parapatellar arthrotomy was made, extending partway into the vastus medialis obliquus muscle. The infrapatellar fat pad was then excised and the knee was flexed. The drill was then used to enter the femoral canal. The intramedullary femoral guide was then advanced up the femur. The distal femoral cutting block was then pinned into position and the distal femoral cut was made. The cruciate ligaments were then sacrificed and the tibial was subluxed anteriorly. The extramedullary tibial guide was then placed according to appropriate alignment and slope. The stylus was then used to determine the desired depth of tibial cut. The tibial cutting block was then pinned in place and the tibial cut was made. The extension gap was then checked and it was noted to be adequate. The sizing guide for the femur was then pinned in place and the stylus was used to determine the appropriate size of the femur, which would be a size 8. The sizing guide was removed and the distal femoral cutting block was pinned into place. The remaining femoral cuts were made. The menisci were then excised. A size E trial tibial baseplate was pinned into position. A trial femur was inserted. A 10 mm trial polyethylene was inserted and there was noted to be excellent stability and range of motion as well as excellent patellar tracking. The trial insert and femur were then removed after drilling the lug holes for the femur. The tibia was then punched and the trial baseplate was removed. The patella was then denervated circumferentially. The patellar cartilage showed minimal signs of chondromalacia. The bony surfaces were then thoroughly irrigated with pulse lavage and dried as cement was mixed on the back table. At this time, a [employer] size E tibial baseplate was cemented into position followed by a right standard femoral implant which was cemented as well. A 10 mm medial constrained polyethylene insert was then inserted. Excess cement was removed. There was again noted to be excellent stability and range of motion as well as excellent patellar tracking. The joint was again thoroughly irrigated with pulse lavage. The arthrotomy was approximated with #1 Vicryl sutures in a [id number] fashion. The subcutaneous tissue was closed with 2-0 Vicryl sutures and the skin was closed with poppy. A sterile dressing was then applied. The patient was then awakened from anesthesia and taken to the recovery room in stable condition.
[2025-05-22] MEDS: VENTOLIN COMMON CANISTER IH SCH (11:30)
[2025-05-22 12:18] VITALS: RESP 22
--- NOTE | 2025-05-22 12:35 | PCM.NOTE ---
Date and Time: 05/22/25 1234 Subjective Assessment: Resting in bed, comfortable, pain controlled. Objective Exam Objective Exam: right knee dressing C/D/I. NVI. Objective Data Vital Signs: Vital Signs - 24 hr Temp Pulse Resp BP Pulse Ox 05/22/25 12:00 98.0 F 77 22 124/59 96 05/22/25 11:31 83 16 94 L 05/22/25 07:47 98.1 F 94 H 16 119/65 94 L 05/22/25 06:52 94 L 05/22/25 04:00 98.3 F 75 21 116/61 92 L 05/22/25 00:00 98.0 F 72 14 108/55 96 05/21/25 22:54 93 L 05/21/25 21:23 93 L 05/21/25 20:00 98.0 F 74 15 113/55 97 05/21/25 16:00 98.2 F 93 H 18 125/60 94 L Pain Assessment - Last Documented Pain Intensity [Right] 2 Pain Intensity 5 Pain Scale Used 0-10 Pain Scale Intake and Output: Intake & Output 05/20/25 05/21/25 05/22/25 05/23/25 06:59 06:59 06:59 06:59 Intake Total 2419 360 Output Total 650 Balance 1769 360 Weight 92.7 kg 93.5 kg Lab Results: Lab Results-Last 24 Hours 05/21/25 05/21/25 05/21/25 Range/Units 13:55 13:55 13:55 WBC 12.8 H (4.23-9.07) x10^3/uL RBC 5.03 (4.63-6.08) x10^6/uL Hgb 15.2 (13.7-17.5) g/dL Hct 47.8 (40.1-51.0) % MCV 95.0 H (79.0-92.2) fL MCH 30.2 (25.7-32.2) pg MCHC 31.8 L (32.3-36.5) g/dL RDW 14.2 (11.6-14.4) % Plt Count 161 L (163-337) x10^3/uL MPV 10.7 (9.4-12.4) fL Gran % 89.3 H (34.0-67.9) % Immature Gran % (Auto) 0.6 H (0.001-0.429) % Nucleat RBC Rel Count 0.0 (0.00-0.2) % Eos # (Auto) 0.01 L (0.04-0.54) x10^3/uL Immature Gran # (Auto) 0.08 H (0.001-0.031) x10^3u/L Absolute Lymphs (auto) 1.10 L (1.32-3.57) x10^3/uL Absolute Monos (auto) 0.16 L (0.30-0.82) x10^3/uL Absolute Nucleated RBC 0.00 (0.00-0.012) x10^3u/L Lymphocytes % 8.6 L (21.8-53.1) % Monocytes % 1.2 L (5.3-12.2) % Eosinophils % 0.1 L (0.8-7.0) % Basophils % 0.2 (0.2-1.2) % Absolute Granulocytes 11.47 H (1.78-5.38) x10^3/uL Basophils # 0.02 (0.01-0.08) x10^3/uL D-Dimer (0.0-0.50) mg/L Sodium 139 (135-145) mmol/L Potassium 3.9 (3.5-5.1) mmol/L Chloride 103 (98-107) mmol/L Carbon Dioxide 27 (22-30) mmol/L Anion Gap 12.7 (5-15) MEQ/L BUN 17 (9-20) mg/dL Creatinine 0.72 (0.66-1.25) mg/dL Estimated GFR 97.7 ML/MIN Glucose 185 H (74-106) mg/dL Calcium 8.5 (8.4-10.2) mg/dL Magnesium (1.6-2.3) mg/dL Total Bilirubin 0.20 (0.2-1.3) mg/dL AST 20 (17-59) U/L ALT 16 (0-50) U/L Alkaline Phosphatase 70 (38-126) U/L Troponin I < 0.012 (0.000-0.033) ng/mL Serum Total Protein 6.1 L (6.3-8.2) g/dL Albumin 3.5 (3.5-5.0) g/dL Urine Color (Yellow) Urine Appearance (Clear) Urine pH (4.6-8.0) Ur Specific [place] (1.005-1.030) Urine Protein (Negative) Urine Glucose (UA) (Negative) mg/dL Urine Ketones (Negative) Urine Blood (Negative) Urine Nitrite (Negative) Urine Bilirubin (Negative) Urine Urobilinogen (0.2) mg/dL Ur Leukocyte Esterase (Negative) U Hyaline Cast (Auto) (0-2) /LPF Urine Microscopic RBC (0-5) /HPF Urine Microscopic WBC (0-5) /HPF Ur Epithelial Cells (None Seen) /HPF Urine Bacteria (None Seen) /HPF Urine Culture Reflexed (NO) Urine Opiates Level (NEGATIVE) Ur Methadone (NEGATIVE) Urine Barbiturates (NEGATIVE) Ur Phencyclidine (PCP) (NEGATIVE) Urine Amphetamine (NEGATIVE) U Benzodiazepine Level (NEGATIVE) Urine Cocaine (NEGATIVE) Urine Marijuana (THC) (NEGATIVE) 05/21/25 05/21/25 05/22/25 Range/Units 13:55 17:10 05:30 WBC 14.6 H (4.23-9.07) x10^3/uL RBC 4.60 L (4.63-6.08) x10^6/uL Hgb 13.8 (13.7-17.5) g/dL Hct 43.9 (40.1-51.0) % MCV 95.4 H (79.0-92.2) fL MCH 30.0 (25.7-32.2) pg MCHC 31.4 L (32.3-36.5) g/dL RDW 14.2 (11.6-14.4) % Plt Count 158 L (163-337) x10^3/uL MPV 10.9 (9.4-12.4) fL Gran % 71.8 H (34.0-67.9) % Immature Gran % (Auto) 0.8 H (0.001-0.429) % Nucleat RBC Rel Count 0.0 (0.00-0.2) % Eos # (Auto) 0.07 (0.04-0.54) x10^3/uL Immature Gran # (Auto) 0.11 H (0.001-0.031) x10^3u/L Absolute Lymphs (auto) 2.87 (1.32-3.57) x10^3/uL Absolute Monos (auto) 1.03 H (0.30-0.82) x10^3/uL Absolute Nucleated RBC 0.00 (0.00-0.012) x10^3u/L Lymphocytes % 19.6 L (21.8-53.1) % Monocytes % 7.0 (5.3-12.2) % Eosinophils % 0.5 L (0.8-7.0) % Basophils % 0.3 (0.2-1.2) % Absolute Granulocytes 10.52 H (1.78-5.38) x10^3/uL Basophils # 0.04 (0.01-0.08) x10^3/uL D-Dimer 1.20 H* (0.0-0.50) mg/L Sodium (135-145) mmol/L Potassium (3.5-5.1) mmol/L Chloride (98-107) mmol/L Carbon Dioxide (22-30) mmol/L Anion Gap (5-15) MEQ/L BUN (9-20) mg/dL Creatinine (0.66-1.25) mg/dL Estimated GFR ML/MIN Glucose (74-106) mg/dL Calcium (8.4-10.2) mg/dL Magnesium (1.6-2.3) mg/dL Total Bilirubin (0.2-1.3) mg/dL AST (17-59) U/L ALT (0-50) U/L Alkaline Phosphatase (38-126) U/L Troponin I < 0.012 (0.000-0.033) ng/mL Serum Total Protein (6.3-8.2) g/dL Albumin (3.5-5.0) g/dL Urine Color (Yellow) Urine Appearance (Clear) Urine pH (4.6-8.0) Ur Specific [place] (1.005-1.030) Urine Protein (Negative) Urine Glucose (UA) (Negative) mg/dL Urine Ketones (Negative) Urine Blood (Negative) Urine Nitrite (Negative) Urine Bilirubin (Negative) Urine Urobilinogen (0.2) mg/dL Ur Leukocyte Esterase (Negative) U Hyaline Cast (Auto) (0-2) /LPF Urine Microscopic RBC (0-5) /HPF Urine Microscopic WBC (0-5) /HPF Ur Epithelial Cells (None Seen) /HPF Urine Bacteria (None Seen) /HPF Urine Culture Reflexed (NO) Urine Opiates Level (NEGATIVE) Ur Methadone (NEGATIVE) Urine Barbiturates (NEGATIVE) Ur Phencyclidine (PCP) (NEGATIVE) Urine Amphetamine (NEGATIVE) U Benzodiazepine Level (NEGATIVE) Urine Cocaine (NEGATIVE) Urine Marijuana (THC) (NEGATIVE) 05/22/25 05/22/25 05/22/25 Range/Units 05:30 05:33 06:06 WBC (4.23-9.07) x10^3/uL RBC (4.63-6.08) x10^6/uL Hgb (13.7-17.5) g/dL Hct (40.1-51.0) % MCV (79.0-92.2) fL MCH (25.7-32.2) pg MCHC (32.3-36.5) g/dL RDW (11.6-14.4) % Plt Count (163-337) x10^3/uL MPV (9.4-12.4) fL Gran % (34.0-67.9) % Immature Gran % (Auto) (0.001-0.429) % Nucleat RBC Rel Count (0.00-0.2) % Eos # (Auto) (0.04-0.54) x10^3/uL Immature Gran # (Auto) (0.001-0.031) x10^3u/L Absolute Lymphs (auto) (1.32-3.57) x10^3/uL Absolute Monos (auto) (0.30-0.82) x10^3/uL Absolute Nucleated RBC (0.00-0.012) x10^3u/L Lymphocytes % (21.8-53.1) % Monocytes % (5.3-12.2) % Eosinophils % (0.8-7.0) % Basophils % (0.2-1.2) % Absolute Granulocytes (1.78-5.38) x10^3/uL Basophils # (0.01-0.08) x10^3/uL D-Dimer (0.0-0.50) mg/L Sodium 136 (135-145) mmol/L Potassium 3.6 (3.5-5.1) mmol/L Chloride 101 (98-107) mmol/L Carbon Dioxide 27 (22-30) mmol/L Anion Gap 11.2 (5-15) MEQ/L BUN 20 (9-20) mg/dL Creatinine 0.69 (0.66-1.25) mg/dL Estimated GFR 98.9 ML/MIN Glucose 142 H (74-106) mg/dL Calcium 8.9 (8.4-10.2) mg/dL Magnesium 1.8 (1.6-2.3) mg/dL Total Bilirubin 0.30 (0.2-1.3) mg/dL AST 21 (17-59) U/L ALT 15 (0-50) U/L Alkaline Phosphatase 63 (38-126) U/L Troponin I (0.000-0.033) ng/mL Serum Total Protein 6.3 (6.3-8.2) g/dL Albumin 3.6 (3.5-5.0) g/dL Urine Color (Yellow) Urine Appearance (Clear) Urine pH (4.6-8.0) Ur Specific [place] (1.005-1.030) Urine Protein (Negative) Urine Glucose (UA) (Negative) mg/dL Urine Ketones (Negative) Urine Blood (Negative) Urine Nitrite (Negative) Urine Bilirubin (Negative) Urine Urobilinogen (0.2) mg/dL Ur Leukocyte Esterase (Negative) U Hyaline Cast (Auto) (0-2) /LPF Urine Microscopic RBC (0-5) /HPF Urine Microscopic WBC (0-5) /HPF Ur Epithelial Cells (None Seen) /HPF Urine Bacteria (None Seen) /HPF Urine Culture Reflexed (NO) Urine Opiates Level NEGATIVE (NEGATIVE) Ur Methadone NEGATIVE (NEGATIVE) Urine Barbiturates NEGATIVE (NEGATIVE) Ur Phencyclidine (PCP) NEGATIVE (NEGATIVE) Urine Amphetamine NEGATIVE (NEGATIVE) U Benzodiazepine Level POSITIVE A (NEGATIVE) Urine Cocaine NEGATIVE (NEGATIVE) Urine Marijuana (THC) NEGATIVE (NEGATIVE) 05/22/25 Range/Units 06:48 WBC (4.23-9.07) x10^3/uL RBC (4.63-6.08) x10^6/uL Hgb (13.7-17.5) g/dL Hct (40.1-51.0) % MCV (79.0-92.2) fL MCH (25.7-32.2) pg MCHC (32.3-36.5) g/dL RDW (11.6-14.4) % Plt Count (163-337) x10^3/uL MPV (9.4-12.4) fL Gran % (34.0-67.9) % Immature Gran % (Auto) (0.001-0.429) % Nucleat RBC Rel Count (0.00-0.2) % Eos # (Auto) (0.04-0.54) x10^3/uL Immature Gran # (Auto) (0.001-0.031) x10^3u/L Absolute Lymphs (auto) (1.32-3.57) x10^3/uL Absolute Monos (auto) (0.30-0.82) x10^3/uL Absolute Nucleated RBC (0.00-0.012) x10^3u/L Lymphocytes % (21.8-53.1) % Monocytes % (5.3-12.2) % Eosinophils % (0.8-7.0) % Basophils % (0.2-1.2) % Absolute Granulocytes (1.78-5.38) x10^3/uL Basophils # (0.01-0.08) x10^3/uL D-Dimer (0.0-0.50) mg/L Sodium (135-145) mmol/L Potassium (3.5-5.1) mmol/L Chloride (98-107) mmol/L Carbon Dioxide (22-30) mmol/L Anion Gap (5-15) MEQ/L BUN (9-20) mg/dL Creatinine (0.66-1.25) mg/dL Estimated GFR ML/MIN Glucose (74-106) mg/dL Calcium (8.4-10.2) mg/dL Magnesium (1.6-2.3) mg/dL Total Bilirubin (0.2-1.3) mg/dL AST (17-59) U/L ALT (0-50) U/L Alkaline Phosphatase (38-126) U/L Troponin I (0.000-0.033) ng/mL Serum Total Protein (6.3-8.2) g/dL Albumin (3.5-5.0) g/dL Urine Color Dark Yellow (Yellow) Urine Appearance Turbid A (Clear) Urine pH 5.5 (4.6-8.0) Ur Specific [place] >=1.030 A (1.005-1.030) Urine Protein 30 (Negative) Urine Glucose (UA) 100 A (Negative) mg/dL Urine Ketones Trace A (Negative) Urine Blood NHT (Negative) Urine Nitrite Negative (Negative) Urine Bilirubin Negative (Negative) Urine Urobilinogen 1.0 A (0.2) mg/dL Ur Leukocyte Esterase Trace A (Negative) U Hyaline Cast (Auto) NONE SEEN (0-2) /LPF Urine Microscopic RBC 6-10 A (0-5) /HPF Urine Microscopic WBC 3-5 (0-5) /HPF Ur Epithelial Cells None Seen (None Seen) /HPF Urine Bacteria None Seen (None Seen) /HPF Urine Culture Reflexed YES (NO) Urine Opiates Level (NEGATIVE) Ur Methadone (NEGATIVE) Urine Barbiturates (NEGATIVE) Ur Phencyclidine (PCP) (NEGATIVE) Urine Amphetamine (NEGATIVE) U Benzodiazepine Level (NEGATIVE) Urine Cocaine (NEGATIVE) Urine Marijuana (THC) (NEGATIVE) Radiology Exams: Radiology Procedures Category Date Time Status CHEST 1 VIEW (PORTABLE) Stat Exams 05/21/25 13:51 Completed ECHO W/2D AND DOPPLER [US] Stat Exams 05/21/25 13:39 Taken KNEE (1 OR 2 VIEW) Stat Exams 05/21/25 10:39 Completed Medications: Medications Generic Name Dose Route Start Last Admin Trade Name Maikelq PRN Reason Stop Dose Admin Acetaminophen 650 mg 05/21/25 13:51 Acetaminophen 325 Mg Tablet PO 06/20/25 13:50 Q4H PRN PRN PAIN, FEVER, HEADACHE Hydrocodone Bitart/Acetaminophen 1 tablet 05/22/25 09:30 05/22/25 10:11 Hydrocodone/Acetamin 10-325 Mg Tablet PO 05/27/25 09:29 1 tablet Q4H PRN PRN Administration PAIN RATED 8-10 Albuterol Sulfate 4 puff 05/22/25 13:00 05/22/25 11:30 Albuterol Common Canister Inhaler IH 06/21/25 12:59 4 puff TIDRT NELIA Administration Aspirin 81 mg 05/22/25 10:00 05/22/25 10:09 Aspirin 81 Mg Tablet.Ec PO 06/21/25 09:59 81 mg BID NELIA Administration Docusate Sodium 100 mg 05/21/25 13:10 Docusate Sodium 100 Mg Capsule PO 06/20/25 13:09 BID PRN PRN CONSTIPATION Hydrochlorothiazide 12.5 mg 05/22/25 10:00 05/22/25 10:10 Hydrochlorothiazide 25 Mg Tablet PO 06/21/25 09:59 12.5 mg DAILY NELIA Administration Lisinopril 20 mg 05/21/25 22:00 05/22/25 10:11 Lisinopril 20 Mg Tablet PO 06/20/25 21:59 20 mg BID NELIA Administration Magnesium Oxide 400 mg 05/22/25 10:00 05/22/25 10:11 Magnesium Oxide 400 Mg Tablet PO 06/21/25 09:59 400 mg DAILY NELIA Administration Morphine Sulfate 4 mg 05/22/25 09:30 Morphine Sulfate 4 Mg/Ml Injection IV 05/27/25 09:29 Q4H PRN PRN BREAKTHROUGH PAIN Nicotine 14 mg 05/21/25 14:00 05/21/25 16:19 Nicotine 14 Mg/Patch Patch TOP 06/20/25 13:59 Not Given Q24H NELIA Ondansetron HCl 4 mg 05/21/25 13:10 Ondansetron Hcl 4 Mg/2 Ml Vial IV 06/20/25 13:09 Q6H PRN PRN NAUSEA/VOMITING Simvastatin 10 mg 05/22/25 10:00 05/22/25 10:10 Simvastatin 10 Mg Tablet PO 06/21/25 09:59 10 mg DAILY NELIA Administration Discontinued Medications Generic Name Dose Route Start Last Admin Trade Name Freq PRN Reason Stop Dose Admin Acetaminophen 1,000 mg 05/21/25 05:55 05/21/25 06:00 Acetaminophen 500 Mg Tablet PO 05/21/25 05:56 1,000 mg 2HRPRIOR ONE Administration Albuterol Sulfate Confirm 05/21/25 10:19 Proair Hfa Mdi 8.5 Gm Administered 05/21/25 10:20 Dose 8.5 gm IH .STK-MED ONE Albuterol/Ipratropium 3 ml 05/21/25 13:51 Ipratropium/Albuterol Sulfate 3 Ml Ampul.Neb IH 06/20/25 18:59 Q6HRT PRN SHORTNESS OF BREATH/WHEEZING Bupivacaine HCl Confirm 05/21/25 07:52 Bupivacaine Hcl/Pf 150 Mg/30 Ml Vial Administered 05/21/25 07:53 Dose 150 mg .ROUTE .STK-MED ONE Bupivacaine Liposome Confirm 05/21/25 07:52 Bupivacaine Liposome/Pf 133 Mg/10 Ml Administered 05/21/25 07:53 Dose 133 mg IJ .STK-MED ONE Cefazolin Sodium Confirm 05/21/25 05:59 Cefazolin Sodium 2 Gm Vial Administered 05/21/25 06:00 Dose 2 gm .ROUTE .STK-MED ONE Celecoxib 200 mg 05/21/25 05:55 05/21/25 06:01 Celecoxib 100 Mg Capsule PO 05/21/25 05:56 200 mg 2HRPRIOR ONE Administration Dexamethasone 8 mg 05/21/25 05:55 05/21/25 06:00 Dexamethasone 4 Mg Tablet PO 05/21/25 05:56 8 mg 2HRPRIOR ONE Administration Diphenhydramine HCl 12.5 - 25 mg 05/21/25 09:22 Diphenhydramine Hcl 50 Mg/Ml Vial IV 05/22/25 09:21 Q6H PRN PRN FOR INTOLERABLE ITCHING Ephedrine Sulfate Confirm 05/21/25 08:28 Ephedrine Sulfate 50 Mg/Ml Administered 05/21/25 08:29 Dose 50 mg .ROUTE .STK-MED ONE Fentanyl Citrate Confirm 05/21/25 07:46 Fentanyl Citrate 100 Mcg/2 Ml* Vial Administered 05/21/25 07:47 Dose 100 mcg .ROUTE .STK-MED ONE Gabapentin 600 mg 05/21/25 05:55 05/21/25 06:00 Gabapentin 300 Mg Capsule PO 05/21/25 05:56 600 mg 2HRPRIOR ONE Administration Lactated Ringer's 1,000 mls @ 50 mls/hr 05/21/25 06:00 05/21/25 06:01 Lactated Ringers IV 06/20/25 05:59 50 mls/hr .Q20H NELIA Administration Cefazolin Sodium 2 gm/ Sodium 100 mls @ 200 mls/hr 05/21/25 05:57 05/21/25 06:01 Chloride IV 05/21/25 06:26 200 mls/hr ONCALLTOOR ONE Administration Sodium Chloride Confirm 05/21/25 05:59 Sodium Chloride 0.9% Administered 05/21/25 06:00 Dose 100 mls @ ud .ROUTE .STK-MED ONE Lactated Ringer's Confirm 05/21/25 07:38 Lactated Ringers Administered 05/21/25 07:39 Dose 1,000 mls @ ud IV .STK-MED ONE TRANEXAMIC ACID IN NACL,ISO-OS 1,000 mg in 100 mls @ 600 mls/hr 05/21/25 08:00 05/21/25 08:02 Tranexamic 1,000 Mg/100ml-Nacl IV 05/21/25 08:09 600 mls/hr ONCE ONE Administration Cefazolin Sodium 2 gm/ Sodium 100 mls @ 200 mls/hr 05/21/25 16:00 05/21/25 23:58 Chloride IV 05/22/25 00:29 200 mls/hr Q8H NELIA Administration Lidocaine HCl Confirm 05/21/25 07:47 Lidocaine - Mpf 2% 5 Ml Vial Administered 05/21/25 07:48 Dose 5 ml .ROUTE .STK-MED ONE Loratadine 10 mg 05/21/25 09:22 Loratadine 10 Mg Tablet PO 05/22/25 09:21 QDP PRN ITCHING Meperidine HCl 12.5 mg 05/21/25 09:22 Meperidine Hcl 50 Mg/Ml Carp IV 05/22/25 09:21 PRN PRN X 1 PRN SHAKING/TREMORS Midazolam HCl Confirm 05/21/25 07:45 Midazolam Hcl 2 Mg/2 Ml Vial Administered 05/21/25 07:46 Dose 2 mg .ROUTE .STK-MED ONE Morphine Sulfate Confirm 05/21/25 07:46 Morphine Sulfate 5 Mg/10 Ml Pf Ampul Administered 05/21/25 07:47 Dose 5 mg .ROUTE .STK-MED ONE Morphine Sulfate 2 mg 05/21/25 09:22 Morphine Sulfate 2 Mg/Ml Inj IV 05/22/25 09:21 .Q30MIN PRN PRN BREAKTHROUGH ,SEVERE PAIN Nalbuphine HCl 5 mg 05/21/25 09:22 Nalbuphine Hcl 10 Mg/Ml Ampul IV 05/22/25 09:21 Q6H PRN PRN FOR INTOLERABLE ITCHING Naloxone HCl 0.1 mg 05/21/25 09:22 Naloxone Hcl 0.4 Mg/Ml Ml IV 05/22/25 09:21 PRN PRN Non-Formulary Medication 1 each 05/21/25 10:00 Hold Narcotic Analgesics/Sedatives 1 Each Each 05/22/25 09:59 DAILY NELIA Ondansetron HCl Confirm 05/21/25 07:47 Ondansetron Hcl 4 Mg/2 Ml Vial Administered 05/21/25 07:48 Dose 4 mg .ROUTE .STK-MED ONE Ondansetron HCl 4 mg 05/21/25 09:22 Ondansetron Hcl 4 Mg/2 Ml Vial IV 05/22/25 09:21 PRN PRN NAUSEA Oxycodone/Acetaminophen 1 - 2 tab 05/21/25 09:22 Oxycodone Hcl/Apap 5 Mg/325 Mg Tablet PO 05/22/25 09:21 Q4H PRN PRN MODERATE PAIN Potassium Chloride 40 meq 05/22/25 08:14 05/22/25 10:16 Potassium Chloride Tab 10 Meq Tab PO 05/22/25 08:15 40 meq STAT ONE Administration Propofol Confirm 05/21/25 07:47 Propofol 200 Mg/20 Ml Vial Administered 05/21/25 07:48 Dose 200 mg IV .STK-MED ONE Rocuronium [place] Confirm 05/21/25 07:47 Rocuronium [place] 50 Mg/5 Ml Vial Administered 05/21/25 07:48 Dose 50 mg IV .STK-MED ONE Sodium Chloride 10 ml 05/21/25 09:22 Normal Saline 10 Ml Flush IJ 05/22/25 09:21 PRN PRN MAINTAIN IV/SALINE LOCK Sugammadex Sodium Confirm 05/21/25 08:47 Sugammadex Sodium 200 Mg/2 Ml Vial Administered 05/21/25 08:48 Dose 200 mg IV .STK-MED ONE Vancomycin HCl Confirm 05/21/25 07:38 Vancomycin Hcl Inj 1 Gm Vial Administered 05/21/25 07:39 Dose 1 gm IV .STK-MED ONE Multi-Disciplinary Progress Notes: Multi-Disciplinary Progress Notes 05/22/25 10:15 Case Management Note by Beth Spangler Addendum entered by Beth Spangler 05/22/25 11:46: PRIMARY RN AWARE- PLANS TO TALK WITH ORTHO Original Note: S/W [facility]- NO PAIN MED RX SENT IN FOR PATIENT AT THIS TIME Initialized on 05/22/25 10:15 - END OF NOTE 05/21/25 16:22 Physical Therapy Note by Bill(L#[id number])Windy CARDIOLOGY CONSULT STILL PENDING. REVIEWED PROPER, SAFE STEP NEGOTIATION AND PROVIDED PT. W/ HANDOUT. PERFORMED ANKLE PUMPS AND QUAD SETS IN BED. PT. STILL HAS SOME NUMBNESS R LE. WILL HOLD ON MOBILITY ASSESSMENT UNTIL AFTER CARDIAC CONSULT. PT. ON 1-2 L O2 D/T LOW SATS AND IV PRESENT. WILL COMPLETE P.T. EVAL IN IN A.M. Initialized on 05/21/25 16:22 - END OF NOTE 05/21/25 14:10 Physical Therapy Note by Bill(Arlin#[id number])Windy WILL HOLD P.T. EVAL UNTIL AFTER CARDIOLOGY CONSULT. Initialized on 05/21/25 14:10 - END OF NOTE Assessment/Plan - Assessment/Plan Assessment & Plan: s/p right TKA DC home aspirin 81mg po BID Follow up 10-14 days.
[2025-05-22] MEDS: Flomax 0.4 MG PO SCH (14:28)
[2025-05-22] MEDS: TYLENOL 325 MG PO PRN (15:43)
[2025-05-22 16:10] VITALS: BP 120/59; PULSE 74; TEMP 98.1; O2SAT 93
== END 2025-05-22 17:00 | disposition home or self-care (01) ==
LOC: SDC 05:47 → MED SURG 11:11
PROVIDERS: ADMIT Internal Medicine; ATTEND Internal Medicine
DX: R94.31 Abnormal electrocardiogram [ECG] [EKG] (principal); M17.11 Unilateral primary osteoarthritis, right knee; E87.6 Hypokalemia; E83.42 Hypomagnesemia; I25.10 Atherosclerotic heart disease of native coronary artery without angina pectoris; I10 Essential (primary) hypertension; E78.5 Hyperlipidemia, unspecified; F17.200 Nicotine dependence, unspecified, uncomplicated; R33.9 Retention of urine, unspecified; Z79.899 Other long term (current) drug therapy; Z79.01 Long term (current) use of anticoagulants
CPT/HCPCS: 27447; 36415; 71045; 73560; 80053; 80307; 81001; 83735; 84484; 85025; 85379; 87086; 93005; 93268; 93306; 94640; 94762; 97161; C1713; C1776; G0378; Q3014